=== PATIENT | male | born 1935 | race Caucasian/White ===

== ENCOUNTER 2019-04-26 16:31 | Inpatient (IN) ==
[2019-04-26 21:09] LABS: Basophils % 0.2 %; Eosinophils % 0.1 %; Hematocrit 36.6 % (37.5-50.1); Hemoglobin 11.5 g/dL (12.9-16.9); Immature Granulocytes % 0.4 % (0-4); Lymphocytes # 1.2 K/mcL (0.6-4.6); Lymphocytes % 10.3 %; Mean Corpuscular HGB Conc 31.4 g/dL (31.6-35.5); Mean Corpuscular Hemoglobin 31.2 pg (28.0-33.3); Mean Corpuscular Volume 99.2 fL (83.0-100.0); Mean Platelet Volume 10.6 fL (9.4-12.4); Monocytes # 0.8 K/mcL (0.0-1.3); Neutrophils # 9.2 K/mcL (1.6-8.9); Platelet Count 186 K/mcL (140-400); Red Blood Count 3.69 M/mcL (4.19-5.50); Red Cell Distribution Width 14.1 % (11.5-14.5); White Blood Count 11.2 K/mcL (4.3-11.1)
[2019-04-26 21:17] LABS: INR 1.1; Prothrombin Time 12.3 Seconds (9.4-12.1)
[2019-04-26 21:20] LABS: Activated Partial Thrombo Time 31.4 Seconds (26.0-36.0)
[2019-04-26 21:24] LABS: BUN/Creatinine Ratio 19 (6-26); Blood Urea Nitrogen 21 mg/dL (8-23); Calcium 9.2 mg/dL (8.6-10.3); Carbon Dioxide 26 mEq/L (23-29); Chloride 108 mEq/L (98-107); Glucose 111 mg/dL (70-105); Osmolality,Calculated 296 (280-300); Potassium 4.2 mEq/L (3.5-5.1); Sodium 141 mEq/L (136-145); eGFR For African Americans > 60 (> 60); eGFR For Non-African Americans > 60 (> 60)
--- NOTE | 2019-04-26 21:32 | Internal Med History&Physical ---
Date of Encounter: 04/26/19 Time of Encounter: 21:30 Internal Medicine - H&P: HPI Chief complaint: Bright red blood per rectum Admitted From: Home Plans for Post Hospital Care: Home History of present illness: Prasad Patel is an 83-year-old man with Parkinsons disease and CAD who presents on transfer from [facility] where he presented to with 3 episodes of lower GI bleed that started this morning. He states that he went to use the bathroom and blood filled the toilet bowl. This happened 2 more times however he denied associated abdominal pain or cramping. He also denies being nauseated or vomiting. He says while he has had streaks of blood in the past this was the most voluminous he had ever seen. He went to [facility] where he was found to have a hemoglobin of 11.[address] of his abdomen was unremarkable. He was transferred here for ongoing evaluation. He reports having had 2 colonoscopies in his past but does not want any more at his age. He also declines rectal exam at this time to evaluate for hemorrhoids and is adamant that he does not have that problem. He appears rather belligerent and would prefer to not have much done. Vitals: Reviewed General: Well-developed man lying comfortably in bed in no acute distress. Skin: Dry, scaly, hyperpigmented HEENT: Moist mucous membranes. No conjunctivae pallor. Neck: No lymphadenopathy. No JVD. No carotid bruits. No palpable thyroid. Chest: Normal thoracic expansion. Normal breath sounds. Clear to auscultation. Heart: Normal S1 & S2; rhythmic. No rubs or murmurs. Abdomen: Non-distended, soft and non-tender to palpation. No peritoneal reaction. Extremities: No clubbing, cyanosis or edema. No calf tenderness. Normal distal p ulses. Neurological: Awake, alert and oriented to person, place and time. No focal deficits. Psych: Affect appropriate. Assessment/Plan 1. Lower GI bleed: Does not appear to be voluminous as he remains hemodynamically stable and with stable H/H. Differentials include diverticulosis, internal hemorrhoids and angiodysplasia. I suspect it will be self-limiting but all the same warrants ongoing observation for recurrences as that would prompt endoscopic evaluation. Will keep on IVF and repeat H/H in the morning. Hold ASA/NSAIDs. 2. Parkinsons: Will continue dopamine agonist therapy. 3. BPH: On doxazosin. 4. DVT prophylaxis: SCDs ordered. Past Med Surg Social Fam HX - Past Medical History Medical history: hypertension Additional medical history: parkinson's Psychiatric history: no psych history - Past Surgical History Surgical History: knee replacement Additional surgical history: 3 heart stents, TURP, richar, tonsils - Social History Smoking Status: Former smoker Smokeless Tobacco Status: No Alcohol use: none Drug use: none - Family History Mother Living Status: Hx Family Cardiac Disorders: Yes Internal Medicine - H&P: Meds Aspirin [Lo-Dose Aspirin EC] 81 mg PO DAILY 04/26/19 [History] Carbidopa/Levodopa ER 50/200 1 tab PO QID 04/26/19 [History] Docusate [Colace] 100 mg PO BID 04/26/19 [History] Doxazosin Mesylate [Cardura] 2 mg PO HS 04/26/19 [History] Duloxetine HCl [Cymbalta] 60 mg PO DAILY 04/26/19 [History] Glycopyrrolate [Robinul] 1 mg PO BID 04/26/19 [History] Lidocaine [Aspercreme] 5 % TP 04/26/19 [History] Meloxicam [Mobic] 15 mg PO DAILY 04/26/19 [History] Ranitidine HCl [Acid Counter Dish Carrier] 150 mg PO BID 04/26/19 [History] Rotigotine [Neupro] 4 mg TP 04/26/19 [History] Vitamin D 1 tab PO HS 04/26/19 [History] Allergy/AdvReac Type Severity Reaction Status Date / Time ciprofloxacin [From Cipro] Allergy Rash Verified 12/14/16 13:56 teramycin Allergy Rash Uncoded 12/14/16 13:56 All Systems PM: A 10-system review of systems was performed and is negative for pertinent findings except as documented above in the HPI. - Constitutional Vitals: Temp Pulse Resp BP Pulse Ox 99.3 F 108 14 137/80 95 04/26/19 18:13 04/26/19 18:13 04/26/19 18:13 04/26/19 18:13 04/26/19 18:13 Exam: . Internal Med - H&P Results - Labs CBC & Chem 7: 04/26/19 20:54 04/26/19 20:54 Labs: Short CBC 04/26/19 Range/Units 20:54 WBC 11.2 H (4.3-11.1) K/mcL Hgb 11.5 L (12.9-16.9) g/dL Hct 36.6 L (37.5-50.1) % Plt Count 186 (140-400) K/mcL Neutrophils # 9.2 H (1.6-8.9) K/mcL BMP 04/26/19 20:54 Sodium 141 Potassium 4.2 Chloride 108 H Carbon Dioxide 26 BUN 21 Creatinine 1.10 Glucose 111 H Calcium 9.2 - Time Spent With Patient Total time spent is greater than 50% in coordination of care (as documented) at patient's floor/unit and/or counseling patient: Greater than 35 minutes
[2019-04-26] MEDS: Ringers Solution, Lactated 1,000 ML IVC SCH (22:00)
[2019-04-26] MEDS: Glycopyrrolate 1 MG TABLET PO SCH (22:01)
[2019-04-26] MEDS: Carbidopa/Levodopa ER 50/200 TABLET PO SCH (22:01)
[2019-04-26] MEDS: Famotidine 20 MG TABLET PO SCH (22:01)
[2019-04-27] MEDS: Ringers Solution, Lactated 1,000 ML IVC SCH ×3 (05:07→21:22)
--- NOTE | 2019-04-27 08:28 | Internal Med Progress Note ---
Hospitalist Progress Note - Encounter Date of Encounter: 04/27/19 Time of Encounter: 08:30 - Subjective Interval History: No acute events overnight - Exam Vitals: Temp Pulse Resp BP Pulse Ox 97.4 F L 76 15 155/69 96 04/27/19 06:33 04/27/19 06:33 04/27/19 06:33 04/27/19 06:33 04/27/19 07:57 Exam: General appearance: Present: A&O X 3, no acute distress Head exam: Present: normocephalic Respiratory exam: Present: CTAB. Absent: accessory muscle use, rales, rhonchi, wheezes Cardiovascular exam: Present: RRR, +S1, +S2. Absent: diastolic murmur, gallop, rubs, systolic murmur GI/Abdominal exam: Soft, NT, ND, +BS Extremities exam: Absent: pedal edema Neurological exam: Present: alert, oriented X3, no focal deficits. Absent: altered - Assessment and Plan (1) Lower GI bleed Current Visit: Yes Status: Acute Assessment and Plan: Patient comes in with multiple episodes of bright red blood in stools Hemoglobin stable at 11. Gi consulted and appreciate recs NPO from midnight for possible colonoscopy in am (2) Parkinson disease Current Visit: Yes Status: Acute Assessment and Plan: Continue carbidopa (3) DVT prophylaxis Current Visit: Yes Status: Acute Assessment and Plan: SCDS - Time Spent with Patient Total time spent is greater than 50% in coordination of care (as documented) at patient's floor/unit and/or counseling patient: Internal Medicine: Result - Labs CBC & Chem 7: 04/27/19 09:16 04/27/19 09:16 Labs: Short CBC 04/26/19 Range/Units 20:54 WBC 11.2 H (4.3-11.1) K/mcL Hgb 11.5 L (12.9-16.9) g/dL Hct 36.6 L (37.5-50.1) % Plt Count 186 (140-400) K/mcL Neutrophils # 9.2 H (1.6-8.9) K/mcL BMP 04/26/19 20:54 Sodium 141 Potassium 4.2 Chloride 108 H Carbon Dioxide 26 BUN 21 Creatinine 1.10 Glucose 111 H Calcium 9.2 - ABG Interpretation ABG results: PT/INR, D-dimer PT 12.3 Seconds (9.4-12.1) H 04/26/19 20:54 Consult Discharge Plan - Plan Referrals: Donnie Rock DO [Primary Care Provider] -
[2019-04-27] MEDS: Famotidine 20 MG TABLET PO SCH ×2 (09:05→21:20)
[2019-04-27] MEDS: Carbidopa/Levodopa ER 50/200 TABLET PO SCH ×4 (09:05→21:21)
[2019-04-27] MEDS: Glycopyrrolate 1 MG TABLET PO SCH ×2 (09:05→21:21)
[2019-04-27 09:29] LABS: Basophils % 0.3 %; Eosinophils # 0.1 K/mcL (0.0-0.6); Eosinophils % 0.7 %; Hematocrit 34.6 % (37.5-50.1); Hemoglobin 11.3 g/dL (12.9-16.9); Immature Granulocytes % 0.4 % (0-4); Lymphocytes # 1.3 K/mcL (0.6-4.6); Lymphocytes % 17.1 %; Mean Corpuscular HGB Conc 32.7 g/dL (31.6-35.5); Mean Corpuscular Hemoglobin 32.4 pg (28.0-33.3); Mean Corpuscular Volume 99.1 fL (83.0-100.0); Mean Platelet Volume 10.6 fL (9.4-12.4); Monocytes # 0.6 K/mcL (0.0-1.3); Neutrophils # 5.5 K/mcL (1.6-8.9); Platelet Count 167 K/mcL (140-400); Red Blood Count 3.49 M/mcL (4.19-5.50); Segmented Neutrophils % 73.5 %; White Blood Count 7.5 K/mcL (4.3-11.1)
[2019-04-27 09:53] LABS: BUN/Creatinine Ratio 19 (6-26); Blood Urea Nitrogen 19 mg/dL (8-23); Carbon Dioxide 26 mEq/L (23-29); Chloride 108 mEq/L (98-107); Glucose 105 mg/dL (70-105); Osmolality,Calculated 295 (280-300); Potassium 4.1 mEq/L (3.5-5.1); Sodium 141 mEq/L (136-145); eGFR For African Americans > 60 (> 60); eGFR For Non-African Americans > 60 (> 60)
[2019-04-28] MEDS ORDERED: Acetaminophen 325 MG TABLET PO PRN (02:03)
[2019-04-28 02:22] LABS: Bilirubin,Urine Negative (Negative); Blood,Urine Large (Negative); Clarity,Urine Clear (Clear); Color,Urine Yellow (Yellow); Glucose,Urine (UA) Normal (Normal); Ketones,Urine Negative (Negative); Leukocyte Esterase,Urine Negative (Negative); Nitrite,Urine Negative (Negative); Protein,Urine Negative (Neg-Trace); Specific Gravity,Urine 1.007 (1.010-1.025); Urobilinogen,Urine Normal (Normal)
[2019-04-28 02:24] LABS: Bacteria,Urine None Seen per hpf (None-Few); Hyaline Casts,Urine None Seen per lpf (None-Few); RBC,Urine 50-100 per hpf (0-3); Squamous Epithelial Cell,Urine Many per lpf (None-Few); WBC,Urine 0-3 per hpf (0-3)
[2019-04-28] MEDS: traMADol 50 MG TABLET PO PRN ×2 (02:28→22:13)
[2019-04-28] MEDS ORDERED: *HR* Promethazine 25 MG/ML VIAL IVP ONE (03:04)
--- NOTE | 2019-04-28 03:16 | Event Note ---
Date of Encounter: 04/28/19 Time of Encounter: 01:05 Alerted by pts. nurse BRYSON Carl that the pt. was reporting burning w/urination. Pt. also reporting that he feels the urge to urinate but can't. Bladder scan showed 313 ml. Stat U/A w/reflex micro and culture ordered. Straight cath ordered which resulted in 500 ml. Nurse reported difficulty with straight cath, so Lucas was inserted to drain bladder. Nurse instructed to leave Lucas in for acute urinary retention and order placed w/a Do Not Remove order. Alerted at 02:18 that the pt. was restless and attempting to get out of bed. 25 mg IVP Benadryl ordered. Alerted by nurse that the pt. now had faby blood in catheter. Went to see the pt. who was resting in bed and agitated. Pt. had been pulling on his Lucas catheter and blood present at the urethra. Haldol contraindicated d/t pts. carbidopa/levodopa he is receiving. Benadryl order cancelled and one-time order for 25 mg IVP Phenergan ordered to help calm the pt. Urology consult ordered d/t current hematuria but consult not confirmed d/t time of evening placed. A.M. team to follow-up and confirm Urology consult in the morning. Nurse instructed to continue monitoring this pt. very closely and alert me immediately of any adverse changes. Monitoring a.m. Hgb.
[2019-04-28] MEDS ORDERED: *HR* Metoprolol 5 MG/5 ML VIAL IVP ONE (04:39)
[2019-04-28] MEDS: Ringers Solution, Lactated 1,000 ML IVC SCH ×3 (06:25→22:14)
[2019-04-28 06:32] LABS: Basophils % 0.2 %; Eosinophils # 0.1 K/mcL (0.0-0.6); Eosinophils % 0.7 %; Hematocrit 37.5 % (37.5-50.1); Hemoglobin 12.4 g/dL (12.9-16.9); Immature Granulocytes % 0.5 % (0-4); Lymphocytes # 1.4 K/mcL (0.6-4.6); Lymphocytes % 13.9 %; Mean Corpuscular HGB Conc 33.1 g/dL (31.6-35.5); Mean Corpuscular Hemoglobin 32.5 pg (28.0-33.3); Mean Corpuscular Volume 98.2 fL (83.0-100.0); Monocytes # 0.6 K/mcL (0.0-1.3); Monocytes % 6.1 %; Neutrophils # 7.8 K/mcL (1.6-8.9); Platelet Count 197 K/mcL (140-400); Red Blood Count 3.82 M/mcL (4.19-5.50); Red Cell Distribution Width 13.8 % (11.5-14.5); Segmented Neutrophils % 78.6 %; White Blood Count 9.9 K/mcL (4.3-11.1)
[2019-04-28 06:51] LABS: BUN/Creatinine Ratio 13 (6-26); Blood Urea Nitrogen 13 mg/dL (8-23); Calcium 9.8 mg/dL (8.6-10.3); Carbon Dioxide 27 mEq/L (23-29); Chloride 106 mEq/L (98-107); Glucose 109 mg/dL (70-105); Magnesium 1.8 mg/dL (1.6-2.6); Osmolality,Calculated 305 (280-300); Phosphorous 2.4 mg/dL (2.7-4.5); Potassium 3.9 mEq/L (3.5-5.1); Sodium 147 mEq/L (136-145); eGFR For African Americans > 60 (> 60); eGFR For Non-African Americans > 60 (> 60)
--- NOTE | 2019-04-28 08:51 | Urology - Consult Note ---
Date of Encounter: 04/28/19 Time of Encounter: 08:00 - Assessment and Plan (1) Urinary retention Current Visit: Yes Status: Acute Assessment and plan: Patient is an 83-year-old male who presents with urinary retention. Inés mayer, I do not have any past urologic history to review, and there are no records on eCW. Urinary retention is likely due to enlarged prostate with outlet obstruction based off patient's age and presentation. Patient will likely require indwelling Lucas catheter for at least 1 week, and I will start patient on oral Flomax. Patient may follow up in our office in 1-2 weeks for a voiding trial. (2) Gross hematuria Current Visit: Yes Status: Acute Assessment and plan: Patient is an 83-year-old male who presents with gross hematuria following traumatic catheter displacement. On initial Lucas placement, urine was clear per nursing staff. Patient has a history of Parkinson's disease and is quite d isoriented. Nursing staff reports patient having on catheter and subsequently experiencing a large amount of gross hematuria. Lucas catheter was obstructed by a clot, and I was able to irrigate clots and restore urine flow. Patient may require a catheter upsize and CBI if urine fails to clear. Urology CN:HPI Consult date: 04/28/19 Reason for consult Urology: Gross Hematuria (urinary retention) Requesting physician: Pascual Tony History of present illness: Patient is an 83-year-old male who presents with urinary retention and gross hematuria following traumatic catheter displacement. Patient was transferred from [facility] for further evaluation for possible lower GI bleed. Patient has a history of Parkinson's disease and underwent catheter placement by nursing staff for urinary retention. Patient has attempted to self remove his Lucas, and nursing staff subsequently noticed gross blood in the urine. Urology has been consulted for management. On my examination, patient is lying in bed in soft restraints. Lucas catheter appears to be obstructed, and there is multiple dried blood clots in catheter tubing. Patient is alert but disoriented, and he is unable to answer any pointed questions regarding his past medical history. Past Med Surg Social Fam HX - Past Medical History Medical history: hypertension Additional medical history: parkinson's Psychiatric history: no psych history - Past Surgical History Surgical History: knee replacement Additional surgical history: 3 heart stents, TURP, richar, tonsils - Social History Smoking Status: Former smoker Smokeless Tobacco Status: No Alcohol use: none Drug use: none - Family History Mother Living Status: Hx Family Cardiac Disorders: Yes Medications and Allergies Aspirin [Lo-Dose Aspirin EC] 81 mg PO 1200 04/26/19 [History] Carbidopa/Levodopa ER 50/200 [Sinemet ER 50-200 TAB] 1 tab PO QID 04/26/19 [History] Cholecalciferol (D-3) [Vitamin D] 1 tab PO HS 04/26/19 [History] Docusate [Colace] 100 mg PO BID 04/26/19 [History] Doxazosin Mesylate [Cardura] 2 mg PO HS 04/26/19 [History] Duloxetine HCl [Cymbalta] 60 mg PO DAILY 04/26/19 [History] Glycopyrrolate [Robinul] 1 mg PO BID 04/26/19 [History] Meloxicam [Mobic] 15 mg PO DAILY 04/26/19 [History] Ranitidine HCl [Acid Special Education Preschool Teacher] 150 mg PO BID 04/26/19 [History] Rotigotine [Neupro] 1 patch TP DAILY 04/26/19 [History] Lidocaine 1 patch TD DAILY 04/27/19 [History] Allergy/AdvReac Type Severity Reaction Status Date / Time ciprofloxacin [From Cipro] Allergy Rash Verified 04/27/19 12:40 teramycin Allergy Rash Uncoded 04/27/19 12:40 Review of Systems ROS unobtainable: due to mental status Exam Initial Vital Signs Temp Pulse Resp BP Pulse Ox 99.3 F 108 14 137/80 95 04/26/19 18:13 04/26/19 18:13 04/26/19 18:13 04/26/19 18:13 04/26/19 18:13 - General physical appearance Present: no distress, no pain, chronically ill - Eyes Present: PERRL, normal ocular movement - ENT Present: normal nares, no congestion - Neck Present: no masses, trachea midline, no lymphadenopathy - Respiratory Present: normal respiratory effort - Cardiovascular Cardiovascular exam IM: RRR - Abdomen Abdomen: Present: soft, non tender. Absent: distended - Genitourinary normal penis with no external lesions, other (Lucas catheter is indwelling, and there are multiple dried blood clots in catheter tubing) Penis: Present: circumsized Urethral meatis: Present: patent - Integumentary Present: no rash, no abnormal pigmentation - Neurologic Present: disoriented, confused - Musculoskeletal Present: other (No pedal edema) Urology Results - Labs 04/28/19 05:53 04/28/19 05:53 Abnormal lab results WBC 11.2 K/mcL (4.3-11.1) H 04/26/19 20:54 RBC 3.82 M/mcL (4.19-5.50) L 04/28/19 05:53 Hgb 12.4 g/dL (12.9-16.9) L 04/28/19 05:53 Hct 34.6 % (37.5-50.1) L 04/27/19 09:16 MCHC 31.4 g/dL (31.6-35.5) L 04/26/19 20:54 9.2 K/mcL (1.6-8.9) H 04/26/19 20:54 PT 12.3 Seconds (9.4-12.1) H 04/26/19 20:54 Sodium 147 mEq/L (136-145) H 04/28/19 05:53 Chloride 108 mEq/L (98-107) H 04/27/19 09:16 Glucose 109 mg/dL (70-105) H 04/28/19 05:53 POC Glucose 104 mg/dL (70-99) H 04/28/19 06:01 305 (280-300) H 04/28/19 05:53 Phosphorus 2.4 mg/dL (2.7-4.5) L 04/28/19 05:53 Ur Specific [place] 1.007 (1.010-1.025) L 04/28/19 00:45 Large (Negative) H 04/28/19 00:45 50-100 per hpf (0-3) H 04/28/19 00:45 Ur Squamous Epith Cells Many per lpf (None-Few) H 04/28/19 00:45 Diabetes panel 04/27/19 04/28/19 Range/Units 09:16 05:53 Sodium 141 147 H (136-145) mEq/L Potassium 4.1 3.9 (3.5-5.1) mEq/L Chloride 108 H 106 (98-107) mEq/L Carbon Dioxide 26 27 (23-29) mEq/L BUN 19 13 (8-23) mg/dL Creatinine 1.00 1.03 (0.70-1.30) mg/dL Glucose 105 109 H (70-105) mg/dL Calcium 9.0 9.8 (8.6-10.3) mg/dL Calcium panel 04/27/19 04/28/19 Range/Units 09:16 05:53 Calcium 9.0 9.8 (8.6-10.3) mg/dL Phosphorus 2.4 L (2.7-4.5) mg/dL Pituitary panel 04/27/19 04/28/19 Range/Units 09:16 05:53 Sodium 141 147 H (136-145) mEq/L Potassium 4.1 3.9 (3.5-5.1) mEq/L Chloride 108 H 106 (98-107) mEq/L Carbon Dioxide 26 27 (23-29) mEq/L BUN 19 13 (8-23) mg/dL Creatinine 1.00 1.03 (0.70-1.30) mg/dL Glucose 105 109 H (70-105) mg/dL Calcium 9.0 9.8 (8.6-10.3) mg/dL Adrenal panel 04/27/19 04/28/19 Range/Units 09:16 05:53 Sodium 141 147 H (136-145) mEq/L Potassium 4.1 3.9 (3.5-5.1) mEq/L Chloride 108 H 106 (98-107) mEq/L Carbon Dioxide 26 27 (23-29) mEq/L BUN 19 13 (8-23) mg/dL Creatinine 1.00 1.03 (0.70-1.30) mg/dL Glucose 105 109 H (70-105) mg/dL Calcium 9.0 9.8 (8.6-10.3) mg/dL All other labs normal. Procedures:Urology - Bladder Irrigation/Clot Evacuation Consent obtained: verbal consent Time out performed: No Irrigation: other (sterile water ) Amount of Clot: moderate Patient tolerated procedure: well, no complications Continuous Bladder Irrigation: No Complications: none Additional comments: Patient lying in supine position. I unattached 16-Syriac Lucas from catheter bag and irrigated 250 mL of sterile water. Patient's catheter with moderate return of clot. Urine improved to transparent fruit punch after irrigation, and Lucas is now nonobstructed and draining well. I explained the patient's nurse he may require an upsize of Lucas catheter and hand irrigation at bedside. Patient tolerated the procedure well without complication. Consult Discharge Plan - Plan Referrals: Donnie Rock DO [Primary Care Provider] -
[2019-04-28] MEDS: Famotidine 20 MG TABLET PO SCH (09:15)
[2019-04-28] MEDS: Glycopyrrolate 1 MG TABLET PO SCH ×2 (09:15→22:13)
[2019-04-28] MEDS: Carbidopa/Levodopa ER 50/200 TABLET PO SCH ×4 (09:15→22:13)
--- NOTE | 2019-04-28 09:43 | Internal Med Progress Note ---
Hospitalist Progress Note - Encounter Date of Encounter: 04/28/19 Time of Encounter: 09:40 - Subjective Interval History: No acute events overnight - Exam Vitals: Temp Pulse Resp BP Pulse Ox 99.5 F 94 19 133/85 97 04/28/19 07:38 04/28/19 09:00 04/28/19 09:00 04/28/19 09:00 04/28/19 09:00 Exam: General appearance: Present: A&O X 3, no acute distress Head exam: Present: normocephalic Respiratory exam: Present: CTAB. Absent: accessory muscle use, rales, rhonchi, wheezes Cardiovascular exam: Present: RRR, +S1, +S2. Absent: diastolic murmur, gallop, rubs, systolic murmur GI/Abdominal exam: Soft, NT, ND, +BS Extremities exam: Absent: pedal edema Neurological exam: Present: alert, oriented X3, no focal deficits. Absent: altered - Assessment and Plan (1) Lower GI bleed Current Visit: Yes Status: Acute Assessment and Plan: Patient comes in with multiple episodes of bright red blood in stools Hemoglobin stable at 11. Gi consulted and appreciate recs NPO from midnight for possible colonoscopy in am if patient consents (2) Urinary retention Current Visit: Yes Status: Acute Assessment and Plan: Pt had urinary retention likely 2/2 to BPH. Gonsales placed overnight Attempted to pull gonsales out with traumatic hematuria as a consequence Seen by urology today with continuos bladder irrigation in place On finasteride and doxazosin (3) Gross hematuria Current Visit: Yes Status: Acute Assessment and Plan: Hemoglobin stable. See plan for urinary retention (4) Parkinson disease Current Visit: Yes Status: Acute Assessment and Plan: Continue carbidopa (5) DVT prophylaxis Current Visit: Yes Status: Acute Assessment and Plan: SCDS - Time Spent with Patient Total time spent is greater than 50% in coordination of care (as documented) at patient's floor/unit and/or counseling patient: Internal Medicine: Result - Labs CBC & Chem 7: 04/28/19 05:53 04/28/19 05:53 Labs: Short CBC 04/28/19 Range/Units 05:53 WBC 9.9 (4.3-11.1) K/mcL Hgb 12.4 L (12.9-16.9) g/dL Hct 37.5 (37.5-50.1) % Plt Count 197 (140-400) K/mcL Neutrophils # 7.8 (1.6-8.9) K/mcL BMP 04/27/19 04/28/19 09:16 05:53 Sodium 141 147 H Potassium 4.1 3.9 Chloride 108 H 106 Carbon Dioxide 26 27 BUN 19 13 Creatinine 1.00 1.03 Glucose 105 109 H Calcium 9.0 9.8 Urine 04/28/19 Range/Units 00:45 Urine Color Yellow (Yellow) Urine Clarity Clear (Clear) Urine pH 7.0 (5.0-8.0) pH Units Ur Specific [place] 1.007 L (1.010-1.025) Urine Protein Negative (Neg-Trace) mg/dL Urine Glucose (UA) Normal (Normal) mg/dL - ABG Interpretation ABG results: PT/INR, D-dimer PT 12.3 Seconds (9.4-12.1) H 04/26/19 20:54 Consult Discharge Plan - Plan Referrals: Donnie Rock DO [Primary Care Provider] -
--- NOTE | 2019-04-28 11:54 | Urology Procedure Note ---
Date of Encounter: 04/28/19 Time of Encounter: 11:48 Procedures:Urology - Catheter Insertion (Urinary) Prophylactic antibiotics given: No Bladder Scan/Ultrasound used before catheterization: No Estimated amount of urin (mLs): 500 Preparation: Povidone-Iodine, Urojet Type of catheter inserted: 3 way Catheter Martiniquais Size: 24 Topical anesthesia used: Yes Results: successfully catheterized-immediate flow Urine Appearance: Hematuria, Large Blood Clots Patient tolerated procedure: well, no complications Complications: none Additional comments: I came in to reevaluate patient. WIND POWER PROJECT MANAGER reports after I irrigated through 16- Martiniquais catheter, 1250 mL of urine followed. Patient lying supine in 4 point restraints, and on my examination, urine is opaque, fruit punch and draining into bedside bag. I successfully removed indwelling 16-Martiniquais catheter. Patient was prepped and draped in normal sterile fashion. I inserted a lidocaine Urojet. I then inserted a 24-Martiniquais three-way hematuria catheter with minimal difficulty. Immediate return of dark red urine was noted. I instilled 30 mL of sterile water into patient's catheter balloon. I proceeded to irrigate 750 mL of sterile water with return of multiple large red blood clots. WIND POWER PROJECT MANAGER affixed catheter to patient's leg. Patient tolerated the procedure well without complication. I placed an order for CBI and attached CBI tubing to inflow port. I communicated my plan with patient's nurse, and I discussed Flomax initiation with patient's pharmacist. Pharmacist reviewed medication list and states he is taking Cardura. We will plan to start finasteride 5 mg orally.
--- NOTE | 2019-04-28 13:09 | Gastroenterology Consult Note ---
<Kip Dominguezmkie Cruz - Last Filed: 04/28/19 16:01> Date of Encounter: 04/28/19 Time of Encounter: 09:45 - Assessment and plan (1) Lower GI bleed Current Visit: Yes Status: Acute Assessment and plan: 83 year old male who presented with rectal bleeding. He refused colonoscopy and rectal exam earlier in the admission. He is increasingly confused. Sitter was at bedside and given my number so that I could discuss colonoscopy when the pts arrives. Hgb has actually increased to 12.4 since admission therefore colonoscopy is not emergent. ADDENDUM: Discussed with Dr Trivedi at 1550 and he suggests keeping pt on clear liquids. Will discuss colonoscopy on Sunday if mentation improves and hgb worsens as sedation for colonoscopy may worsen confusion. (2) Parkinson disease Current Visit: Yes Status: Acute (3) Gross hematuria Current Visit: Yes Status: Acute Assessment and plan: Pt has been pulling at gonsales cath, urology was consulted. - Time Spent With Patient Total time spent is greater than 50% in coordination of care (as documented) at patient's floor/unit and/or counseling patient: GI History of Present Illness - Data of Consult Patient: new to practice Consult date: 04/28/19 Requesting Physician: Danii Zuleta - Consult Narrative Reason for consult: rectal bleeding History of present illness: Mr. Patel is an 83 year old male with Parkinsons disease and CAD who presents on transfer from [facility] where he presented to with 3 episodes of lower GI bleed that started this morning. He states that he went to use the bathroom and blood filled the toilet bowl. This happened 2 more times however he denied associated abdominal pain or cramping. He also denies being nauseated or vomiting. He says while he has had streaks of blood in the past this was the most voluminous he had ever seen. He went to [facility] where he was found to have a hemoglobin of 11.[address] of his abdomen was unremarkable. He was transferred here for ongoing evaluation. He reports having had 2 colonoscopies in his past but does not want any more at his age. He also refused rectal exam at this time to evaluate for hemorrhoids and is adamant that he does not have that problem. He has become increasingly confused, agitated and has been pulling at gonsales and other medical devices. There is bright red blood in gonsales tubing. He has a sitter at the bedside. No family is present at this time. NSAIDs: Aspirin 81 mg Anticoagulants: None Past Med Surg Social Fam HX - Past Medical History Medical history: hypertension Additional medical history: parkinson's Psychiatric history: no psych history - Past Surgical History Surgical History: knee replacement Additional surgical history: 3 heart stents, TURP, richar, tonsils - Social History Smoking Status: Former smoker Smokeless Tobacco Status: No Alcohol use: none Drug use: none - Family History Mother Living Status: Hx Family Cardiac Disorders: Yes ROS unobtainable: due to mental status - Constitutional Vitals: Temp Pulse Resp BP Pulse Ox 98.8 F 97 19 146/83 95 04/28/19 11:45 04/28/19 12:07 04/28/19 12:07 04/28/19 12:07 04/28/19 12:07 Exam: CONSTITUTIONAL:alert, no acute distress.HEAD:normocephalic.EYES:no jaundice.NECK:no obvious swelling.HEART:regular rate and rhythm, no murmurs.LUNGS:bilateral fair air entry.ABDOMEN:non distended, soft, non tender, no masses palpable, no organomegaly, bright red blood noted in gonsales tubing.RECTAL EXAM:Deferred.EXTREMITIES:no clubbing, cyanosis or edema.SKIN:no stigmata of chronic liver disease.NEUROLOGIC:no obvious focal defect. Results - Labs CBC & Chem 7: 04/28/19 05:53 04/28/19 05:53 Labs: Last Result 04/28/19 05:53 Calcium 9.8 Entire Visit 04/28/19 05:53 Hgb 12.4 L Hct 37.5 - ABG ABG results: PT/INR, D-dimer PT 12.3 Seconds (9.4-12.1) H 04/26/19 20:54 Consult Discharge Plan - Plan Referrals: Donnie Rock DO [Primary Care Provider] - <Brown Trivedi - Last Filed: 04/30/19 05:31> Date of Encounter: 04/30/19 - Time Spent With Patient Total time spent is greater than 50% in coordination of care (as documented) at patient's floor/unit and/or counseling patient: GI History of Present Illness - Data of Consult Requesting Physician: Danii Zuleta - Consult Narrative History of present illness: Mr. Patel is a 83 year old male - Constitutional Vitals: Temp Pulse Resp BP Pulse Ox 99.3 F 107 14 159/81 96 04/29/19 19:30 04/29/19 19:30 04/29/19 19:30 04/29/19 19:30 04/29/19 19:30 Results - Labs CBC & Chem 7: 04/29/19 06:44 04/29/19 06:44 - ABG ABG results: PT/INR, D-dimer PT 12.3 Seconds (9.4-12.1) H 04/26/19 20:54 - Attending Attestation 83 year old white male who was transferred from [facility] for hematochezia. He has repeatedly refused endoscopy and has threatened to leave AMA during this hospitalization. Hence given patient's sentiment and wishes will hold off colonoscopy. Transfuse as needed. I have personally performed a face to face evaluation on this patient. I have reviewed and agree with the care plan. History and Exam by me shows:
[2019-04-28] MEDS: Finasteride 5 MG TABLET PO SCH (13:13)
[2019-04-29] MEDS: Ringers Solution, Lactated 1,000 ML IVC SCH ×3 (06:54→21:32)
[2019-04-29 07:31] LABS: Basophils % 0.3 %; Eosinophils # 0.1 K/mcL (0.0-0.6); Hemoglobin 10.4 g/dL (12.9-16.9); Immature Granulocytes % 0.8 % (0-4); Lymphocytes # 1.3 K/mcL (0.6-4.6); Mean Corpuscular HGB Conc 33.5 g/dL (31.6-35.5); Mean Corpuscular Hemoglobin 33.2 pg (28.0-33.3); Monocytes # 0.7 K/mcL (0.0-1.3); Neutrophils # 4.5 K/mcL (1.6-8.9); Platelet Count 162 K/mcL (140-400); Red Blood Count 3.13 M/mcL (4.19-5.50); Red Cell Distribution Width 13.9 % (11.5-14.5); Segmented Neutrophils % 67.9 %; White Blood Count 6.6 K/mcL (4.3-11.1)
[2019-04-29 07:47] LABS: BUN/Creatinine Ratio 16 (6-26); Blood Urea Nitrogen 16 mg/dL (8-23); Carbon Dioxide 30 mEq/L (23-29); Chloride 105 mEq/L (98-107); Glucose 86 mg/dL (70-105); Magnesium 1.8 mg/dL (1.6-2.6); Osmolality,Calculated 298 (280-300); Phosphorous 2.9 mg/dL (2.7-4.5); Potassium 3.8 mEq/L (3.5-5.1); Sodium 144 mEq/L (136-145); eGFR For African Americans > 60 (> 60); eGFR For Non-African Americans > 60 (> 60)
--- NOTE | 2019-04-29 08:24 | Urology Progress Note ---
Date of Encounter: 04/29/19 Time of Encounter: 08:00 - Assessment and Plan (1) Urinary retention Current Visit: Yes Status: Acute Assessment and plan: Patient is an 83-year-old male who presents with history of urinary retention. Patient is currently taking Cardura daily, and we have added finasteride daily. Patient will remain with indwelling Lucas catheter for 1-2 weeks, and we will arrange for an outpatient cystoscopy trial of void with Dr. Marquez. (2) Gross hematuria Current Visit: Yes Status: Acute Assessment and plan: Patient is an 83-year-old male who presents with gross hematuria following traumatic catheter displacement. I titrated CBI very slow flow. If urine remains clear, nurse may titrate CBI to off position. CBI may be discontinued once urine remains clear without flow. Progress Note Subjective: no new complaints Narrative: Patient seen and examined lying in bed in no apparent distress. NURSE RESEARCH at bedside. Lucas catheter is indwelling and draining transparent, clear yellow urine into bedside bag. CBI is on moderate flow. Objective Initial Vital Signs Temp Pulse Resp BP Pulse Ox 99.3 F 108 14 137/80 95 04/26/19 18:13 04/26/19 18:13 04/26/19 18:13 04/26/19 18:13 04/26/19 18:13 - General physical appearance Present: no distress, no pain - Respiratory Present: normal expansion, normal respiratory effort - Abdomen Present: soft, non tender. Absent: distended - Genitourinary Urine Appearance: Present: Clear - Integumentary Present: no rash, no abnormal pigmentation - Musculoskeletal Present: normal posture - Psychiatric Absent: oriented to time, oriented to person, oriented to place, speech is normal, memory intact - Labs 04/29/19 06:44 04/29/19 06:44 Diabetes panel 04/29/19 Range/Units 06:44 Sodium 144 (136-145) mEq/L Potassium 3.8 (3.5-5.1) mEq/L Chloride 105 (98-107) mEq/L Carbon Dioxide 30 H (23-29) mEq/L BUN 16 (8-23) mg/dL Creatinine 0.97 (0.70-1.30) mg/dL Glucose 86 (70-105) mg/dL Calcium 9.0 (8.6-10.3) mg/dL Calcium panel 04/29/19 Range/Units 06:44 Calcium 9.0 (8.6-10.3) mg/dL Phosphorus 2.9 (2.7-4.5) mg/dL Pituitary panel 04/29/19 Range/Units 06:44 Sodium 144 (136-145) mEq/L Potassium 3.8 (3.5-5.1) mEq/L Chloride 105 (98-107) mEq/L Carbon Dioxide 30 H (23-29) mEq/L BUN 16 (8-23) mg/dL Creatinine 0.97 (0.70-1.30) mg/dL Glucose 86 (70-105) mg/dL Calcium 9.0 (8.6-10.3) mg/dL Adrenal panel 04/29/19 Range/Units 06:44 Sodium 144 (136-145) mEq/L Potassium 3.8 (3.5-5.1) mEq/L Chloride 105 (98-107) mEq/L Carbon Dioxide 30 H (23-29) mEq/L BUN 16 (8-23) mg/dL Creatinine 0.97 (0.70-1.30) mg/dL Glucose 86 (70-105) mg/dL Calcium 9.0 (8.6-10.3) mg/dL Consult Discharge Plan - Plan Referrals: Donnie Rock DO [Primary Care Provider] -
[2019-04-29] MEDS: Carbidopa/Levodopa ER 50/200 TABLET PO SCH ×4 (08:32→21:29)
[2019-04-29] MEDS: Famotidine 20 MG TABLET PO SCH (08:32)
[2019-04-29] MEDS: Finasteride 5 MG TABLET PO SCH (08:32)
[2019-04-29] MEDS: Glycopyrrolate 1 MG TABLET PO SCH ×2 (08:32→21:30)
--- NOTE | 2019-04-29 08:35 | Internal Med Progress Note ---
Hospitalist Progress Note - Encounter Date of Encounter: 04/29/19 Time of Encounter: 08:30 - Subjective Interval History: No acute events overnight - Exam Vitals: Temp Pulse Resp BP Pulse Ox 97.7 F 70 16 132/78 96 04/29/19 07:10 04/29/19 07:10 04/29/19 07:10 04/29/19 07:10 04/29/19 07:10 Exam: General appearance: Present: A&O X 3, no acute distress Head exam: Present: normocephalic Respiratory exam: Present: CTAB. Absent: accessory muscle use, rales, rhonchi, wheezes Cardiovascular exam: Present: RRR, +S1, +S2. Absent: diastolic murmur, gallop, rubs, systolic murmur GI/Abdominal exam: Soft, NT, ND, +BS Extremities exam: Absent: pedal edema Neurological exam: Present: alert, oriented X3, no focal deficits. Absent: altered - Assessment and Plan (1) Lower GI bleed Current Visit: Yes Status: Acute Assessment and Plan: Patient comes in with multiple episodes of bright red blood in stools Hemoglobin has hovered from 10-11 wita baseline of 12 . Gi consulted and appreciate recs NPO from midnight for possible colonoscopy in am (2) Urinary retention Current Visit: Yes Status: Acute Assessment and Plan: Pt had urinary retention likely 2/2 to BPH. Gonsales placed overnight Attempted to pull gonsales out with traumatic hematuria as a consequence Seen by urology today with continuos bladder irrigation in place On finasteride and doxazosin (3) Gross hematuria Current Visit: Yes Status: Acute Assessment and Plan: Hemoglobin stable. See plan for urinary retention (4) Parkinson disease Current Visit: Yes Status: Acute Assessment and Plan: Continue carbidopa (5) DVT prophylaxis Current Visit: Yes Status: Acute Assessment and Plan: SCDS - Time Spent with Patient Total time spent is greater than 50% in coordination of care (as documented) at patient's floor/unit and/or counseling patient: Internal Medicine: Result - Labs CBC & Chem 7: 04/29/19 06:44 04/29/19 06:44 Labs: Short CBC 04/29/19 Range/Units 06:44 WBC 6.6 (4.3-11.1) K/mcL Hgb 10.4 L D (12.9-16.9) g/dL Hct 31.0 L (37.5-50.1) % Plt Count 162 (140-400) K/mcL Neutrophils # 4.5 (1.6-8.9) K/mcL BMP 04/29/19 06:44 Sodium 144 Potassium 3.8 Chloride 105 Carbon Dioxide 30 H BUN 16 Creatinine 0.97 Glucose 86 Calcium 9.0 - ABG Interpretation ABG results: PT/INR, D-dimer PT 12.3 Seconds (9.4-12.1) H 04/26/19 20:54 Consult Discharge Plan - Plan Referrals: Donnie Rock DO [Primary Care Provider] -
[2019-04-29] MEDS: traMADol 50 MG TABLET PO PRN ×2 (17:30→23:22)
[2019-04-29] MEDS ORDERED: Melatonin 3 MG TABLET PO PRN (23:23)
[2019-04-30] MEDS ORDERED: *HR* Promethazine 25 MG/ML VIAL IVP ONE (03:03)
[2019-04-30] MEDS: Ringers Solution, Lactated 1,000 ML IVC SCH ×3 (05:10→20:53)
[2019-04-30 05:32] LABS: Basophils % 0.2 %; Eosinophils # 0.2 K/mcL (0.0-0.6); Eosinophils % 1.9 %; Hematocrit 30.4 % (37.5-50.1); Immature Granulocytes % 0.5 % (0-4); Lymphocytes % 11.6 %; Mean Corpuscular HGB Conc 32.9 g/dL (31.6-35.5); Mean Corpuscular Hemoglobin 32.7 pg (28.0-33.3); Mean Corpuscular Volume 99.3 fL (83.0-100.0); Mean Platelet Volume 11.3 fL (9.4-12.4); Monocytes # 0.7 K/mcL (0.0-1.3); Monocytes % 8.5 %; Neutrophils # 6.6 K/mcL (1.6-8.9); Platelet Count 151 K/mcL (140-400); Red Blood Count 3.06 M/mcL (4.19-5.50); Red Cell Distribution Width 13.3 % (11.5-14.5); Segmented Neutrophils % 77.3 %; White Blood Count 8.5 K/mcL (4.3-11.1)
[2019-04-30 05:53] LABS: BUN/Creatinine Ratio 20 (6-26); Blood Urea Nitrogen 18 mg/dL (8-23); Calcium 8.7 mg/dL (8.6-10.3); Carbon Dioxide 27 mEq/L (23-29); Chloride 105 mEq/L (98-107); Glucose 91 mg/dL (70-105); Magnesium 1.8 mg/dL (1.6-2.6); Osmolality,Calculated 297 (280-300); Phosphorous 3.2 mg/dL (2.7-4.5); Potassium 3.6 mEq/L (3.5-5.1); Sodium 143 mEq/L (136-145); eGFR For African Americans > 60 (> 60); eGFR For Non-African Americans > 60 (> 60)
--- NOTE | 2019-04-30 09:14 | Urology Progress Note ---
Date of Encounter: 04/30/19 Time of Encounter: 08:30 - Assessment and Plan (1) Urinary retention Current Visit: Yes Status: Acute Assessment and plan: Patient is an 83-year-old male who presents with urinary retention. Patient w ill need to be discharged with Lucas catheter in place. Nursing staff to please provide patient with catheter care instructions as well as a leg bag with straps. Patient may also continue finasteride [address] Marquez will plan to see Mr. Patel within 1 week for a cystoscopy and trial of void. (2) Gross hematuria Current Visit: Yes Status: Acute Assessment and plan: Patient is an 83-year-old male who presents with gross hematuria following traumatic catheter displacement. Urine has remained clear off CBI. I will place an order to remove CBI and insert a catheter plug into the inflow port. Patient will return to our office within 1 week for a cystoscopy as an outpatient. Progress Note Subjective: no new complaints, feels better Narrative: Patient seen and examined sitting upright in bed in no apparent distress. HOURLY ASSOCIATE is at bedside. Hematuria catheter indwelling and draining transparent, clear yellow urine off CBI. Patient's mentation appears improved. Objective Initial Vital Signs Temp Pulse Resp BP Pulse Ox 99.3 F 108 14 137/80 95 04/26/19 18:13 04/26/19 18:13 04/26/19 18:13 04/26/19 18:13 04/26/19 18:13 - General physical appearance Present: well developed, no distress, no pain - Respiratory Present: normal expansion, normal respiratory effort - Abdomen Present: soft, non tender. Absent: distended - Genitourinary Urine Appearance: Present: Clear. Absent: Sediment, Hematuria, Small Blood Clots, Large Blood Clots - Integumentary Present: no rash, no abnormal pigmentation - Musculoskeletal Present: normal posture - Psychiatric Present: oriented to person, oriented to place, speech is normal. Absent: oriented to time, memory intact - Labs 04/30/19 04:55 04/30/19 04:55 Diabetes panel 04/30/19 Range/Units 04:55 Sodium 143 (136-145) mEq/L Potassium 3.6 (3.5-5.1) mEq/L Chloride 105 (98-107) mEq/L Carbon Dioxide 27 (23-29) mEq/L BUN 18 (8-23) mg/dL Creatinine 0.92 (0.70-1.30) mg/dL Glucose 91 (70-105) mg/dL Calcium 8.7 (8.6-10.3) mg/dL Calcium panel 04/30/19 Range/Units 04:55 Calcium 8.7 (8.6-10.3) mg/dL Phosphorus 3.2 (2.7-4.5) mg/dL Pituitary panel 04/30/19 Range/Units 04:55 Sodium 143 (136-145) mEq/L Potassium 3.6 (3.5-5.1) mEq/L Chloride 105 (98-107) mEq/L Carbon Dioxide 27 (23-29) mEq/L BUN 18 (8-23) mg/dL Creatinine 0.92 (0.70-1.30) mg/dL Glucose 91 (70-105) mg/dL Calcium 8.7 (8.6-10.3) mg/dL Adrenal panel 04/30/19 Range/Units 04:55 Sodium 143 (136-145) mEq/L Potassium 3.6 (3.5-5.1) mEq/L Chloride 105 (98-107) mEq/L Carbon Dioxide 27 (23-29) mEq/L BUN 18 (8-23) mg/dL Creatinine 0.92 (0.70-1.30) mg/dL Glucose 91 (70-105) mg/dL Calcium 8.7 (8.6-10.3) mg/dL Consult Discharge Plan - Plan Referrals: Donnie Rock DO [Primary Care Provider] -
[2019-04-30] MEDS: Glycopyrrolate 1 MG TABLET PO SCH ×2 (09:20→20:53)
[2019-04-30] MEDS: Famotidine 20 MG TABLET PO SCH (09:20)
[2019-04-30] MEDS: Carbidopa/Levodopa ER 50/200 TABLET PO SCH ×4 (09:20→20:53)
[2019-04-30] MEDS: Finasteride 5 MG TABLET PO SCH (09:20)
--- NOTE | 2019-04-30 13:19 | Internal Med Progress Note ---
Hospitalist Progress Note - Encounter Date of Encounter: 04/30/19 Time of Encounter: 09:30 - Subjective Interval History: Patient lying down in bed. Denies any new complaints at this time. States that he does not want colonoscopy. One-to-one sitter present at bedside. Says that he is healthy except for his left knee which has chronic pain. Hematemesis or melena reported overnight. - Exam Vitals: Temp Pulse Resp BP Pulse Ox 97.6 F 84 16 126/75 96 04/30/19 10:47 04/30/19 10:47 04/30/19 10:47 04/30/19 10:47 04/30/19 10:47 Exam: General: Patient is alert, no acute distress, disoriented Respiratory: Good respiratory effort. Normal breath sounds. No wheezing or crackles. Cardiovascular: Regular rate and rhythm. s1 and s2 normal No clicks, rubs, gall ops, or murmurs. No pedal edema Abdomen: Abdomen is soft, nontender. Bowel sounds are present Musculoskeletal: Spontaneously moving all extremities Skin: warm, dry, intact. Neuro: Alert disoriented normal cranial nerves, no focal deficits - Assessment and Plan (1) Lower GI bleed Current Visit: Yes Status: Acute (2) Parkinson disease Current Visit: Yes Status: Acute (3) Urinary retention Current Visit: Yes Status: Acute (4) Gross hematuria Current Visit: Yes Status: Acute (5) DVT prophylaxis Current Visit: Yes Status: Acute DVT Prophylaxis: SCDs - Summary of Assessment and Plan Summary of Assessment and Plan: Lower GI bleed: Patient refusing colonoscopy. However per discussion with GI, patient's had requested that he undergo colonoscopy. Patient is currently disoriented. GI to follow up with patient and to decide on plan of care. Anemia: Suspected to be related to GI bleed. Hemoglobin 10 today. We will continue to monitor closely. Urinary retention with gross hematuria: On continuous bladder irrigation. Urology following. Patient started on Flomax. Recommend to be discharged with Lucas catheter and outpatient follow-up in 1 week for cystoscopy and voiding trial. Parkinson's disease: Patient currently on Sinemet. 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 Disoriented currently. DVT prophylaxis with SCDs Discharge planning: Patient has been evaluated by physical therapy and recommended basement to skilled rehabilitation. However patient and his do not wish to go to skilled rehabilitation and are requesting home health instead. tray room worker working on making arrangements for this. - Time Spent with Patient Total time spent is greater than 50% in coordination of care (as documented) at patient's floor/unit and/or counseling patient: Internal Medicine: Result - Labs CBC & Chem 7: 04/30/19 04:55 04/30/19 04:55 Labs: Short CBC 04/30/19 Range/Units 04:55 WBC 8.5 (4.3-11.1) K/mcL Hgb 10.0 L (12.9-16.9) g/dL Hct 30.4 L (37.5-50.1) % Plt Count 151 (140-400) K/mcL Neutrophils # 6.6 (1.6-8.9) K/mcL BMP 04/30/19 04:55 Sodium 143 Potassium 3.6 Chloride 105 Carbon Dioxide 27 BUN 18 Creatinine 0.92 Glucose 91 Calcium 8.7 - ABG Interpretation ABG results: PT/INR, D-dimer PT 12.3 Seconds (9.4-12.1) H 04/26/19 20:54 Consult Discharge Plan - Plan Referrals: Donnie Rock DO [Primary Care Provider] -
[2019-04-30] MEDS: traMADol 50 MG TABLET PO PRN (17:00)
[2019-05-01] MEDS: Ringers Solution, Lactated 1,000 ML IVC SCH ×3 (04:34→20:35)
[2019-05-01 04:56] LABS: Basophils % 0.3 %; Eosinophils # 0.4 K/mcL (0.0-0.6); Eosinophils % 4.9 %; Hematocrit 29.9 % (37.5-50.1); Hemoglobin 10.1 g/dL (12.9-16.9); Immature Granulocytes % 0.7 % (0-4); Lymphocytes % 12.6 %; Mean Corpuscular HGB Conc 33.8 g/dL (31.6-35.5); Mean Corpuscular Hemoglobin 33.3 pg (28.0-33.3); Mean Corpuscular Volume 98.7 fL (83.0-100.0); Mean Platelet Volume 10.9 fL (9.4-12.4); Monocytes # 0.7 K/mcL (0.0-1.3); Monocytes % 8.9 %; Neutrophils # 5.5 K/mcL (1.6-8.9); Platelet Count 159 K/mcL (140-400); Red Blood Count 3.03 M/mcL (4.19-5.50); Red Cell Distribution Width 13.5 % (11.5-14.5); Segmented Neutrophils % 72.6 %; White Blood Count 7.5 K/mcL (4.3-11.1)
[2019-05-01 05:13] LABS: BUN/Creatinine Ratio 16 (6-26); Blood Urea Nitrogen 13 mg/dL (8-23); Calcium 8.8 mg/dL (8.6-10.3); Carbon Dioxide 28 mEq/L (23-29); Chloride 105 mEq/L (98-107); Glucose 87 mg/dL (70-105); Magnesium 1.8 mg/dL (1.6-2.6); Osmolality,Calculated 291 (280-300); Phosphorous 2.6 mg/dL (2.7-4.5); Potassium 3.5 mEq/L (3.5-5.1); Sodium 141 mEq/L (136-145); eGFR For African Americans > 60 (> 60); eGFR For Non-African Americans > 60 (> 60)
[2019-05-01] MEDS: Famotidine 20 MG TABLET PO SCH (08:40)
[2019-05-01] MEDS: Finasteride 5 MG TABLET PO SCH (08:40)
[2019-05-01] MEDS: Glycopyrrolate 1 MG TABLET PO SCH ×2 (08:40→21:27)
[2019-05-01] MEDS: Carbidopa/Levodopa ER 50/200 TABLET PO SCH ×4 (08:40→21:27)
--- NOTE | 2019-05-01 14:59 | Internal Med Progress Note ---
Hospitalist Progress Note - Encounter Date of Encounter: 05/01/19 Time of Encounter: 14:57 - Subjective Interval History: Evaluated patient earlier this morning. Was complaining of pain in his right hand. Otherwise doing well. Denies any new episodes of lower GI bleed. No nausea or vomiting. No abdominal pain. - Exam Vitals: Temp Pulse Resp BP Pulse Ox 97.9 F 89 16 130/75 95 05/01/19 14:00 05/01/19 14:00 05/01/19 14:00 05/01/19 14:00 05/01/19 14:00 Exam: General: Patient is alert, no acute distress, disoriented Respiratory: Good respiratory effort. Normal breath sounds. No wheezing or crackles. Cardiovascular: Regular rate and rhythm. s1 and s2 normal No clicks, rubs, gallops, or murmurs. No pedal edema Abdomen: Abdomen is soft, nontender. Bowel sounds are present Musculoskeletal: Spontaneously moving all extremities Skin: warm, dry, intact. Neuro: Alert disoriented normal cranial nerves, no focal deficits - Assessment and Plan (1) Lower GI bleed Current Visit: Yes Status: Acute (2) Parkinson disease Current Visit: Yes Status: Acute (3) Urinary retention Current Visit: Yes Status: Acute (4) Gross hematuria Current Visit: Yes Status: Acute (5) DVT prophylaxis Current Visit: Yes Status: Acute DVT Prophylaxis: SCDs - Summary of Assessment and Plan Summary of Assessment and Plan: Lower GI bleed: Hemoglobin levels have been stable. No further episodes of lower GI bleed. GI to discuss with family about colonoscopy. Anemia: Hemoglobin levels remain stable. We will continue to monitor. Urinary retention with gross hematuria: Continue Lucas catheter and outpatient follow-up with urology after discharge. Continue Flomax Parkinson's disease: Continue Sinemet. Has one-to-one sitter at bedside. DVT prophylaxis with SCDs Discharge planning: Patient has been recommended skilled rehabilitation place ment per PTOT evaluation. However patient wishes to go home with home health instead. Please refer to social worker aide note for further information. - Time Spent with Patient Total time spent is greater than 50% in coordination of care (as documented) at patient's floor/unit and/or counseling patient: Internal Medicine: Result - Labs CBC & Chem 7: 05/01/19 04:25 05/01/19 04:25 Labs: Short CBC 05/01/19 Range/Units 04:25 WBC 7.5 (4.3-11.1) K/mcL Hgb 10.1 L (12.9-16.9) g/dL Hct 29.9 L (37.5-50.1) % Plt Count 159 (140-400) K/mcL Neutrophils # 5.5 (1.6-8.9) K/mcL BMP 05/01/19 04:25 Sodium 141 Potassium 3.5 Chloride 105 Carbon Dioxide 28 BUN 13 Creatinine 0.82 Glucose 87 Calcium 8.8 - ABG Interpretation ABG results: PT/INR, D-dimer PT 12.3 Seconds (9.4-12.1) H 04/26/19 20:54 Consult Discharge Plan - Plan Referrals: Germain Richard DO [Non-Partnered Physician] -
[2019-05-01] MEDS: traMADol 50 MG TABLET PO PRN (19:29)
[2019-05-02] MEDS: Ringers Solution, Lactated 1,000 ML IVC SCH (04:21)
[2019-05-02 04:51] LABS: Basophils % 0.3 %; Eosinophils # 0.3 K/mcL (0.0-0.6); Eosinophils % 4.3 %; Hematocrit 29.9 % (37.5-50.1); Hemoglobin 9.9 g/dL (12.9-16.9); Immature Granulocytes % 0.8 % (0-4); Lymphocytes # 1.1 K/mcL (0.6-4.6); Lymphocytes % 16.5 %; Mean Corpuscular HGB Conc 33.1 g/dL (31.6-35.5); Mean Corpuscular Hemoglobin 32.9 pg (28.0-33.3); Mean Corpuscular Volume 99.3 fL (83.0-100.0); Mean Platelet Volume 11.2 fL (9.4-12.4); Monocytes # 0.6 K/mcL (0.0-1.3); Neutrophils # 4.5 K/mcL (1.6-8.9); Platelet Count 164 K/mcL (140-400); Red Blood Count 3.01 M/mcL (4.19-5.50); Red Cell Distribution Width 13.6 % (11.5-14.5); Segmented Neutrophils % 69.1 %; White Blood Count 6.6 K/mcL (4.3-11.1)
[2019-05-02 05:09] LABS: BUN/Creatinine Ratio 12 (6-26); Blood Urea Nitrogen 11 mg/dL (8-23); Calcium 8.6 mg/dL (8.6-10.3); Carbon Dioxide 30 mEq/L (23-29); Chloride 106 mEq/L (98-107); Glucose 105 mg/dL (70-105); Magnesium 1.7 mg/dL (1.6-2.6); Osmolality,Calculated 296 (280-300); Phosphorous 2.8 mg/dL (2.7-4.5); Potassium 3.3 mEq/L (3.5-5.1); Sodium 143 mEq/L (136-145); eGFR For African Americans > 60 (> 60); eGFR For Non-African Americans > 60 (> 60)
[2019-05-02] MEDS: Glycopyrrolate 1 MG TABLET PO SCH (08:45)
[2019-05-02] MEDS: Famotidine 20 MG TABLET PO SCH (08:45)
[2019-05-02] MEDS: Carbidopa/Levodopa ER 50/200 TABLET PO SCH ×2 (08:45→13:36)
[2019-05-02] MEDS: Finasteride 5 MG TABLET PO SCH (08:45)
[2019-05-02 10:38] VITALS: BP 106/65
--- NOTE | 2019-05-02 12:33 | Discharge Summary ---
- NOTES TO OUTPATIENT PROVIDER Notes to Outpatient Provider: Patient with a history of Parkinson's disease and coronary artery disease who was hospitalized here after presenting to the ER at [facility] with 3 episodes of lower GI bleed. He was hemodynamically stable. Patient was placed on PPI and gastroenterology was consulted. They did recommend colonoscopy. However patient did not want this procedure done. As such his hemoglobin levels were monitored during his stay here and they have been fairly stable. He has not had any further episodes of GI bleed. At this time he is tolerating diet and will be discharged home. He will follow up with his primary care provider for further management. He may resume baby aspirin but we recommend that he stop taking meloxicam. Patient also has urinary retention and urology was consulted. He had traumatic Lucas catheter placement with grass hematuria and so urology placed a Lucas catheter and then was treated with CBI. His hematuria has stopped. He is recommended to follow up with urology as outpatient and will be discharged with Lucas catheter in place. Orders not resulted at time of discharge: Pending orders 05/03/19 04:00 Basic Metabolic Panel AM 0400 CBC [Complete Blood Count] [HEME] AM 0400 Magnesium AM 0400 Phosphorous AM 0400 Date of Encounter: 05/02/19 Time of Encounter: 12:31 - Discharge Diagnosis (1) Lower GI bleed Priority: Primary Status: Acute (2) Parkinson disease Priority: Secondary Status: Acute (3) Urinary retention Priority: Secondary Status: Acute (4) Gross hematuria Priority: Secondary Status: Acute (5) DVT prophylaxis Priority: Secondary Status: Acute Hospital course: Mr. Patel is a 83 year old male Patient with a history of Parkinson's disease and coronary artery disease who was hospitalized here after presenting to the ER at [facility] with 3 episodes of lower GI bleed. He was hemodynamically stable. Patient was placed on PPI and gastroenterology was consulted. They did recommend colonoscopy. However patient did not want this procedure done. As such his hemoglobin levels were monitored during his stay here and they have been fairly stable. He has not had any further episodes of GI bleed. At this time he is tolerating diet and will be discharged home. He will follow up with his primary care provider for further management. He may resume baby aspirin but we recommend that he stop taking meloxicam. Patient also has urinary retention and urology was consulted. He had traumatic Lucas catheter placement with grass hematuria and so urology placed a Lucas catheter and then was treated with CBI. His hematuria has stopped. He is rec ommended to follow up with urology as outpatient and will be discharged with Lucas catheter in place. Discharge discussed with: patient - Time Spent with Patient Total time spent providing and/or coordinating discharge services: Time spent: Greater than 30 minutes (32 min) - Discharge Medications Prescriptions: New Finasteride [Proscar] 5 mg PO DAILY #30 tablet Omeprazole [PriLOSEC] 40 mg PO DAILY #30 cap Continued Cholecalciferol (D-3) [Vitamin D] 1 tab PO HS Glycopyrrolate [Robinul] 1 mg PO BID Duloxetine HCl [Cymbalta] 60 mg PO DAILY Doxazosin Mesylate [Cardura] 2 mg PO HS Docusate [Colace] 100 mg PO BID Carbidopa/Levodopa ER 50/200 [Sinemet ER 50-200 Tab] 1 tab PO QID Aspirin [Lo-Dose Aspirin EC] 81 mg PO 1200 Rotigotine [Neupro] 1 patch TP DAILY Lidocaine 1 patch TD DAILY Discontinued Ranitidine HCl [Acid Tests Superintendent] 150 mg PO BID Meloxicam [Mobic] 15 mg PO DAILY Home Medications: Aspirin [Lo-Dose Aspirin EC] 81 mg PO 1200 04/26/19 [History] Carbidopa/Levodopa ER 50/200 [Sinemet ER 50-200 Tab] 1 tab PO QID 04/26/19 [History] Cholecalciferol (D-3) [Vitamin D] 1 tab PO HS 04/26/19 [History] Docusate [Colace] 100 mg PO BID 04/26/19 [History] Doxazosin Mesylate [Cardura] 2 mg PO HS 04/26/19 [History] Duloxetine HCl [Cymbalta] 60 mg PO DAILY 04/26/19 [History] Glycopyrrolate [Robinul] 1 mg PO BID 04/26/19 [History] Rotigotine [Neupro] 1 patch TP DAILY 04/26/19 [History] Lidocaine 1 patch TD DAILY 04/27/19 [History] Finasteride [Proscar] 5 mg PO DAILY #30 tablet 05/02/19 [Rx] Omeprazole [PriLOSEC] 40 mg PO DAILY #30 cap 05/02/19 [Rx] Allergies/Adverse Reactions: Allergy/AdvReac Type Severity Reaction Status Date / Time ciprofloxacin [From Cipro] Allergy Rash Verified 04/27/19 12:40 teramycin Allergy Rash Uncoded 04/27/19 12:40 Date of admission: 04/28/19 08:38 Primary care physician: Donnie Rock DO Consults: 04/26/19 21:15 Consult to Gastroenterology [CONS] Routine Consulting Provider: Gastroenterology Jessa Reason for Consult: 83 year old male presenting with LGIB Call Completed: Yes 04/28/19 03:06 Consult to Urology [CONS] Routine Consulting Provider: Urology Randall Reason for Consult: Patient has urinary retention, so Lucas catheter placed. Pt. has Parkinsons and becomes agitated and pulling on Lucas. [place] blood in Lucas now. Call Completed: No 04/28/19 16:01 Consult to Occupational Therapy [CONS] Routine Comment: Evaluate, develop and implement POC Reason for Consult: deconditioning, unsteady gait Does patient have active BEDREST order?: No Is patient medically & hemodynamically stable?: Yes Patient assessed for mobility or mobilized this visit?: No Consult to Physical Therapy [CONS] Routine Comment: Evaluate, develop and implement POC Reason for Consult: deconditioning, unsteady gait Does patient have active BEDREST order?: No Is patient medically & hemodynamically stable?: Yes Patient assessed for mobility or mobilized this visit?: No 04/29/19 13:42 Consult to Invasive Line Access Team [CONS] Routine Reason for Consult: poor vascular access Line Type: EPIV Discharging clinician: Evangelist Back Anticipated date of discharge: 05/02/19 - Constitutional Vitals: Temp Pulse Resp BP Pulse Ox 98.6 F 85 16 106/65 95 05/02/19 10:37 05/02/19 10:37 05/02/19 10:37 05/02/19 10:37 05/02/19 10:37 Exam: General: Patient is alert, no acute distress, oriented x 2 Respiratory: Good respiratory effort. Normal breath sounds. No wheezing or crackles. Cardiovascular: Regular rate and rhythm. s1 and s2 normal No clicks, rubs, gallops, or murmurs. No pedal edema Abdomen: Abdomen is soft, nontender. Bowel sounds are present Musculoskeletal: Spontaneously moving all extremities Skin: warm, dry, intact. Neuro: Alert oriented x 2 normal cranial nerves, no focal deficits - Patient Status Disposition: Home Health Service Condition: Good Functional capacity at discharge: uses cane/walker Overall status at discharge: patient is progressing back to baseline - Ambulatory Orders Ambulatory Orders: Complete Blood Count [HEME] Time Frame: 1 Week, Facility: [facility], Location: Lab - Discharge Instructions Follow Up With: Germain Richard DO [Non-Partnered Physician] - (In 1-2 weeks) Bean Marquez [Partnered Physician] - (In 1-2 weeks for voiding trial) - Diet and Activity Activity: increase activity as tolerated Diet: low fat, low cholesterol, low salt diet
--- NOTE | 2019-05-02 13:21 | Event Note ---
Date of Encounter: 05/02/19 Time of Encounter: 09:00 Spoke with Mr and Mrs Patel at bedside yesterday. Patient has no evidence of bleeding here in the hospital. He has constipation and strains a lot per Jorge. He has Parkinson's
--- NOTE | 2019-05-02 15:24 | Physician Discharge Referral ---
Home Health/Hosp Referral Info Transfer to: Home Health Provider in Charge Post Discharge: PCP - Diagnosis (1) Lower GI bleed Priority: Primary Status: Acute (2) Parkinson disease Priority: Secondary Status: Acute (3) Urinary retention Priority: Secondary Status: Acute (4) Gross hematuria Priority: Secondary Status: Acute (5) DVT prophylaxis Priority: Secondary Status: Acute - Respiratory Orders Smoking Cessation: Smoking cessation has been advised. For more information, call the [place] Tobacco Quit Line at 0-425-CZCM-NOW. - Diet/Nutrition Diet/Nutrition Orders: Cardiac - Activity Activity Orders: Walker - Services Needed Following services are medically necessary services: Nursing, Physical Therapy, Occupational Therapy - Transfer Medications Prescriptions: Omeprazole [PriLOSEC] 40 mg PO DAILY #30 cap Finasteride [Proscar] 5 mg PO DAILY #30 tablet Home Medications: Aspirin [Lo-Dose Aspirin EC] 81 mg PO 1200 04/26/19 [History] Carbidopa/Levodopa ER 50/200 [Sinemet ER 50-200 Tab] 1 tab PO QID 04/26/19 [History] Cholecalciferol (D-3) [Vitamin D] 1 tab PO HS 04/26/19 [History] Docusate [Colace] 100 mg PO BID 04/26/19 [History] Doxazosin Mesylate [Cardura] 2 mg PO HS 04/26/19 [History] Duloxetine HCl [Cymbalta] 60 mg PO DAILY 04/26/19 [History] Glycopyrrolate [Robinul] 1 mg PO BID 04/26/19 [History] Rotigotine [Neupro] 1 patch TP DAILY 04/26/19 [History] Lidocaine 1 patch TD DAILY 04/27/19 [History] Finasteride [Proscar] 5 mg PO DAILY #30 tablet 05/02/19 [Rx] Omeprazole [PriLOSEC] 40 mg PO DAILY #30 cap 05/02/19 [Rx] Allergies/Adverse Reactions: Allergy/AdvReac Type Severity Reaction Status Date / Time ciprofloxacin [From Cipro] Allergy Rash Verified 04/27/19 12:40 teramycin Allergy Rash Uncoded 04/27/19 12:40 Certification: Further, I certify that my clinical findings support that this patient is homebound (i.e. absences from home require considerable and taxing effort and are for medical reasons or christian services or infrequently or short duration when for other reasons) because: Homebound Reason: Patient requires assistance of a person or device to safely leave home Attestation: My signature below is to certify that this patient is under my care and that I, or nurse practitioner, or a physician's administration assistant working with me, has a [id number] encounter with this patient.
== END 2019-05-02 14:46 | disposition home health service (06) | DRG 378 ==
LOC: 3ANU → SUATTDRO 04-28 08:38 → 3ANU 04-28 22:20
PROVIDERS: ADMIT Internal Medicine Nephrology; ATTEND Internal Medicine